=== PATIENT | male | born 1955 | race Caucasian/White ===

== ENCOUNTER 2019-05-26 16:00 | Emergency (ER) | payer OTHER, SELFPAY ==
[2019-05-26 16:00] VITALS: BP 133/77; PULSE 76; RESP 20; TEMP 36.5; O2SAT 95; BMI 44.7
--- NOTE | 2019-05-26 16:34 | DI.US.S_ITS ---
PROCEDURE: US SCROTUM INDICATIONS: RIGHT TESTICULAR PAIN TECHNIQUE: Real-time scanning was performed of the scrotum and testicles, with image documentation. Color and pulse Doppler interrogation was performed of both testicles. COMPARISON: None. FINDINGS: Right: Testicle is normal in size at 4.1 x 2.8 x 2.7 cm, and homogenous in echotexture. Epididymis is normal in overall size and morphology. Small hydrocele. Small varicocele. There is an incidental 7 mm epididymal cyst. Overlying scrotal skin is normal in thickness. Left: Testicle is normal in size at 4.3 x 3.3 x 2.5 cm, and homogeneous in echotexture. Epididymis is normal in overall size and morphology. Small hydrocele. Small varicocele. There is an incidental 3 mm epididymal cyst. Overlying scrotal skin is normal in thickness. Doppler: Color and pulse Doppler demonstrate normal and symmetric arterial flow in both testicles. IMPRESSION: 1. No evidence of testicular mass or testicular torsion. Symmetrical flow to the testicles. 2. Small bilateral hydroceles. 3. Small bilateral varicoceles. Dictated by: Deep Amaya M.D. on 05/26/2019 at 17:24 Approved by: Deep Amaya M.D. on 05/26/2019 at 17:32
--- NOTE | 2019-05-26 17:03 | ED.ABDPAIN ---
HPI - Abdominal Pain <Payton Escobar MD - Last Filed: 05/26/19 19:14> General Chief Complaint: Abdominal Pain Stated Complaint: not feeling well Time Seen by Provider: 05/26/19 16:10 Source: patient Mode of arrival: ambulatory Limitations: no limitations History of Present Illness HPI narrative: Patient comes to the emergency department complaining abdominal pain and increased flatulence and belching over the last several days. Patient states that initially, the pain was just a vague ache, intermittently, but now, the pain is stabbing and causes him to double over. He states it still comes intermittently but there is a dull ache constantly. Pain is located in the patient's right lower back and flank and in the lowest region of his right lower quadrant. He states he also has some mild testicular soreness on the right that he noticed when he was in the shower and washing himself. Patient denies any swelling. No history of hernia. He states that about a month ago, he caught his right testicle in his underwear and pulled it. He states that since then, he does seem to have had a little bit of soreness. Patient denies fevers. No nausea or vomiting. No dysuria. No gross hematuria, the patient does note that he was followed for several years by Urology for painless, microscopic hematuria. No history of kidney stones. Related Data Home Medications Medication Instructions Recorded Confirmed amlodipine [Norvasc] 10 mg PO DAILY 05/26/19 05/26/19 atenolol 150 mg PO DAILY 05/26/19 05/26/19 irbesartan 300 mg PO QPM 05/26/19 05/26/19 levothyroxine [Synthroid] 224 mcg PO QAM 05/26/19 05/26/19 lovastatin 20 mg PO BEDTIME 05/26/19 05/26/19 potassium chloride 10 meq PO BID 05/26/19 05/26/19 triamterene-hydrochlorothiazid 1 tab PO DAILY 05/26/19 05/26/19 warfarin 5 mg PO DAILY 05/26/19 05/26/19 Allergies Allergy/AdvReac Type Severity Reaction Status Date / Time No Known Allergies Allergy Uncoded 02/18/18 12:40 Review of Systems <Payton Escobar MD - Last Filed: 05/26/19 19:14> Constitutional Denies chills, Denies fever(s), Denies lethargy and Denies weakness Eyes Denies change in vision, Denies eye discharge, Denies irritation and Denies loss of vision ENT Ears, Nose, Mouth, and Throat: Denies change in voice, Denies neck pain and Denies sore throat Cardiovascular Denies chest pain, Denies irregular heart rhythm, Denies lightheadedness, Denies palpitations, Denies dyspnea, Denies dyspnea on exertion and Denies orthopnea Respiratory Denies cough, Denies dyspnea, Denies dyspnea on exertion and Denies wheezing Gastrointestinal Gastrointestinal: Reports abdominal pain, Denies change in bowel habits, Denies diarrhea, Denies nausea and Denies vomiting Genitourinary Denies hematuria, Denies flank pain, Denies urinary incontinence and Denies urinary urgency Musculoskeletal Denies neck pain Integumentary/Breasts Denies pruritus, Denies erythema, Denies rash and Denies wounds Neurologic Denies confusion, Denies loss of vision and Denies weakness Psychiatric Denies anxiety, Denies confusion, Denies depression, Denies homicidal ideation and Denies suicidal ideation Endocrine Denies palpitations Hematologic/Lymphatic Denies easy bruising Allergic/Immunologic Denies wheezing PFSH <Payton Escobar MD - Last Filed: 05/26/19 19:14> Medical History Hyperlipidemia (Acute) Hematuria (Acute) HTN (hypertension) (Acute) Surgical History History of thyroidectomy Family History (Updated 10/24/16 @ 00:00 by Conversion Provider) Father Prostate cancer Heart disease Essential hypertension Mother Diabetes mellitus Essential hypertension Social History Smoking Status: Current every day smoker Family History (Updated 10/24/16 @ 00:00 by Conversion Provider) Father Prostate cancer Heart disease Essential hypertension Mother Diabetes mellitus Essential hypertension Social History Smoking Status: Current every day smoker Exam <Payton Escobar MD - Last Filed: 05/26/19 19:14> Initial Vital Signs Initial Vital Signs: Vital Signs Temperature 97.7 F 05/26/19 16:00 Pulse Rate 76 05/26/19 16:00 Respiratory Rate 20 05/26/19 16:00 Blood Pressure 133/77 05/26/19 16:00 Pulse Oximetry 95 05/26/19 16:00 Scrotum: no scrotal swelling Testes: testicular lie normal Other: Mild right testicular tenderness. <Andrew Schultz DO - Last Filed: 05/26/19 20:27> Initial Vital Signs Initial Vital Signs: Vital Signs Temperature 97.7 F 05/26/19 16:00 Pulse Rate 76 05/26/19 16:00 Respiratory Rate 20 05/26/19 16:00 Blood Pressure 133/77 05/26/19 16:00 Pulse Oximetry 95 05/26/19 16:00 Course <Payton Escobar MD - Last Filed: 05/26/19 19:14> Course Narrative: Patient was worked up with labs, UA, scrotal ultrasound, and CT of the abdomen pelvis. He was signed out to Dr. Schultz at change of shift, pending CT of the abdomen and pelvis. Ultrasound was unremarkable. Orders Ordered: ED Orders 05/26/19 16:34 US scrotum Stat 05/26/19 17:40 Complete Blood Count AUTO DIFF Stat Comprehensive Metabolic Panel Stat Urinalysis and Microscopic Stat 05/26/19 18:05 CT abdomen pelvis w con Stat Discontinued Medications Sodium Chloride (Normal Saline 0.9%) 1,000 mls @ 1,000 mls/hr IV BOLUS ONE Stop: 05/26/19 17:33 Last Infusion: 05/26/19 19:28 Dose: 0 mls/hr Admin: 05/26/19 17:45 Dose: 1,000 mls/hr Vital Signs - 8 hr 05/26/19 16:00 05/26/19 17:45 05/26/19 19:53 Temperature 97.7 F Pulse Rate 76 63 80 Respiratory Rate 20 Blood Pressure 133/77 168/108 H Blood Pressure [Left Arm] 153/82 H Pulse Oximetry 95 96 98 <Andrew Schultz DO - Last Filed: 05/26/19 20:27> Orders Ordered: ED Orders 05/26/19 16:34 US scrotum Stat 05/26/19 17:40 Complete Blood Count AUTO DIFF Stat Comprehensive Metabolic Panel Stat Urinalysis and Microscopic Stat 05/26/19 18:05 CT abdomen pelvis w con Stat Discontinued Medications Sodium Chloride (Normal Saline 0.9%) 1,000 mls @ 1,000 mls/hr IV BOLUS ONE Stop: 05/26/19 17:33 Last Infusion: 05/26/19 19:28 Dose: 0 mls/hr Admin: 05/26/19 17:45 Dose: 1,000 mls/hr Vital Signs - 8 hr 05/26/19 16:00 05/26/19 17:45 05/26/19 19:53 Temperature 97.7 F Pulse Rate 76 63 80 Respiratory Rate 20 Blood Pressure 133/77 168/108 H Blood Pressure [Left Arm] 153/82 H Pulse Oximetry 95 96 98 MDM - Abdominal Pain <Payton Escobar MD - Last Filed: 05/26/19 19:14> Lab Data Result diagrams: 05/26/19 17:40 05/26/19 17:40 Lab Results 05/26/19 05/26/19 05/26/19 Range/Units 17:40 17:40 17:40 WBC 12.1 H (4.5-11.0) X10^3/uL RBC 5.73 (4.5-5.9) X10^6/uL Hgb 17.7 H (13.5-17.5) g/dL Hct 53.6 H (41-53) % MCV 93.6 (80-100) fL MCH 30.9 (26-34) PG MCHC 33.0 (30-36) % RDW 15.5 H (11.6-14.8) % Plt Count 145 L (150-400) X10^3/uL Neut % (Auto) 77.2 H (50-75) % Lymph % (Auto) 15.6 L (25-40) % Wirt % (Auto) 5.9 (3-14) % Eos % (Auto) 0.7 L (2-4) % Baso % (Auto) 0.6 (0-2) % Neut # (Auto) 9400 H (9945-7044) /uL Lymph # (Auto) 1900 (7279-0302) /uL Wirt # (Auto) 700 (0-900) /uL Eos # (Auto) 100 (0-450) /uL Baso # (Auto) 100 (0-100) /uL Sodium 141 (137-145) mmol/L Potassium 3.2 L (3.4-5.1) mmol/L Chloride 105 (98-107) mmol/L Carbon Dioxide 25 (22-32) mmol/L BUN 11 (9-20) mg/dL Creatinine 0.80 (0.66-1.25) mg/dL Estimated GFR > 60.0 (>60) mL/min BUN/Creatinine Ratio 13.8 (6-22) Glucose 108 (80-110) mg/dL Calcium 9.3 (8.4-10.2) mg/dL Total Bilirubin 1.3 (0.2-1.3) mg/dL AST 29 (17-59) IU/L ALT 37 (21-72) IU/L Alkaline Phosphatase 94 (38-126) U/L Total Protein 7.6 (6.3-8.2) g/dL Albumin 4.2 (3.5-5.0) g/dL Globulin 3.4 (1.7-4.1) g/dL Albumin/Globulin Ratio 1.2 (1.0-2.8) Urine Color Yellow Urine Appearance Clear Urine pH 7.0 (4.5-8.0) Ur Specific [place] 1.015 (1.000-1.035) Urine Protein Negative (Negative) Urine Glucose (UA) Negative (Negative) g/dL Urine Ketones Negative (NEGATIVE) Urine Occult Blood 3+ H (Negative) Urine Nitrate Negative (Negative) Urine Bilirubin Negative (NEGATIVE) Urine Urobilinogen 1.0 (0.2) E.U./dL Ur Leukocyte Esterase Negative (NEGATIVE) Urine RBC 5-10/hpf H (0-5/HPF) Urine WBC None seen (0-5/HPF) Urine Bacteria Occasional (0-1) (None) Ur Culture Indicated? Cult not indicated <Andrew Schultz, DO - Last Filed: 05/26/19 20:27> Lab Data Lab Results 05/26/19 05/26/19 05/26/19 Range/Units 17:40 17:40 17:40 WBC 12.1 H (4.5-11.0) X10^3/uL RBC 5.73 (4.5-5.9) X10^6/uL Hgb 17.7 H (13.5-17.5) g/dL Hct 53.6 H (41-53) % MCV 93.6 (80-100) fL MCH 30.9 (26-34) PG MCHC 33.0 (30-36) % RDW 15.5 H (11.6-14.8) % Plt Count 145 L (150-400) X10^3/uL Neut % (Auto) 77.2 H (50-75) % Lymph % (Auto) 15.6 L (25-40) % Wirt % (Auto) 5.9 (3-14) % Eos % (Auto) 0.7 L (2-4) % Baso % (Auto) 0.6 (0-2) % Neut # (Auto) 9400 H (9599-5494) /uL Lymph # (Auto) 1900 (8870-1092) /uL Wirt # (Auto) 700 (0-900) /uL Eos # (Auto) 100 (0-450) /uL Baso # (Auto) 100 (0-100) /uL Sodium 141 (137-145) mmol/L Potassium 3.2 L (3.4-5.1) mmol/L Chloride 105 (98-107) mmol/L Carbon Dioxide 25 (22-32) mmol/L BUN 11 (9-20) mg/dL Creatinine 0.80 (0.66-1.25) mg/dL Estimated GFR > 60.0 (>60) mL/min BUN/Creatinine Ratio 13.8 (6-22) Glucose 108 (80-110) mg/dL Calcium 9.3 (8.4-10.2) mg/dL Total Bilirubin 1.3 (0.2-1.3) mg/dL AST 29 (17-59) IU/L ALT 37 (21-72) IU/L Alkaline Phosphatase 94 (38-126) U/L Total Protein 7.6 (6.3-8.2) g/dL Albumin 4.2 (3.5-5.0) g/dL Globulin 3.4 (1.7-4.1) g/dL Albumin/Globulin Ratio 1.2 (1.0-2.8) Urine Color Yellow Urine Appearance Clear Urine pH 7.0 (4.5-8.0) Ur Specific [place] 1.015 (1.000-1.035) Urine Protein Negative (Negative) Urine Glucose (UA) Negative (Negative) g/dL Urine Ketones Negative (NEGATIVE) Urine Occult Blood 3+ H (Negative) Urine Nitrate Negative (Negative) Urine Bilirubin Negative (NEGATIVE) Urine Urobilinogen 1.0 (0.2) E.U./dL Ur Leukocyte Esterase Negative (NEGATIVE) Urine RBC 5-10/hpf H (0-5/HPF) Urine WBC None seen (0-5/HPF) Urine Bacteria Occasional (0-1) (None) Ur Culture Indicated? Cult not indicated Imaging Data CT scan - abdomen: Radiologist's impression: [address] [address] [address] Scan Report Signed Patient: Dominick Koroma WMR#: [id number] : 6Acct:[id number] Age/Sex: 64 / MDate of Service: 05/26/19 Loc: ED Accession Number: [id number] Procedure: CT abdomen pelvis w con Ordering Provider: Payton Escobar MD PROCEDURE: CT ABDOMEN PELVIS W CON INDICATIONS: RLQ abd pain since Friday. TECHNIQUE: After the administration of intravenous contrast, 5 mm thick sections acquired from the diaphragm to the symphysis. 5 mm coronal and sagittal reformats were acquired. For radiation dose reduction, the following was used: automated exposure control, adjustment of mA and/or kV according to patient size. COMPARISON: None. FINDINGS: Image quality: Excellent. ABDOMEN: Lung bases: Lung bases are clear. Heart size is normal. Solid organs: Liver is normal in size and enhancement. Gallbladder is unremarkable. Biliary system is non dilated. Pancreas enhances normally. Spleen is normal in size and enhancement. No adrenal nodules. Kidneys demonstrate normal size and enhancement, without hydronephrosis. Peritoneum and bowel: Bowel loops demonstrate normal wall thickness and caliber. No free fluid or air. Normal appendix. Nodes and vessels: No retroperitoneal or mesenteric adenopathy by size criteria. Aorta and inferior vena cava are normal in size. Mild atherosclerotic calcifications. Miscellaneous: No ventral hernias. PELVIS: Genitourinary: Moderately distended bladder with normal wall thickness. Enlarged prostate. Miscellaneous: No inguinal hernias or adenopathy. Bones: No suspicious bony lesions. No vertebral body compression fractures. IMPRESSION: No evidence of acute appendicitis or other acute abdominal process. 2. Enlarged prostate Dictated by: Deep Amaya M.D. on 05/26/2019 at 19:09 Approved by: Deep Amaya M.D. on 05/26/2019 at 19:15 Testicular ultrasound: Radiologist's impression: Dominick Koroma 64 M [address] [address] Ultrasound Report Signed Patient: Dominick Koroma WMR#: [id number] : 6Acct:[id number] Age/Sex: 64 / MDate of Service: 05/26/19 Loc: ED Accession Number: [id number] Procedure: US scrotum Ordering Provider: Payton Escobar MD PROCEDURE: US SCROTUM INDICATIONS: RIGHT TESTICULAR PAIN TECHNIQUE: Real-time scanning was performed of the scrotum and testicles, with image documentation. Color and pulse Doppler interrogation was performed of both testicles. COMPARISON: None. FINDINGS: Right: Testicle is normal in size at 4.1 x 2.8 x 2.7 cm, and homogenous in echotexture. Epididymis is normal in overall size and morphology. Small hydrocele. Small varicocele. There is an incidental 7 mm epididymal cyst. Overlying scrotal skin is normal in thickness. Left: Testicle is normal in size at 4.3 x 3.3 x 2.5 cm, and homogeneous in echotexture. Epididymis is normal in overall size and morphology. Small hydrocele. Small varicocele. There is an incidental 3 mm epididymal cyst. Overlying scrotal skin is normal in thickness. Doppler: Color and pulse Doppler demonstrate normal and symmetric arterial flow in both testicles. IMPRESSION: 1. No evidence of testicular mass or testicular torsion. Symmetrical flow to the testicles. 2. Small bilateral hydroceles. 3. Small bilateral varicoceles. Dictated by: Deep Amaya M.D. on 05/26/2019 at 17:24 Approved by: Deep Amaya M.D. on 05/26/2019 at 17:32 MDM Narrative Medical decision making narrative: Received turned over from day provider. Reviewed patient's history and physical. Patient's labs reviewed. Scrotal ultrasound reviewed. Abdominal CT scan is unremarkable. Patient does have hematuria and upon further questioning patient states he has had hematuria in the past and has seen Urology for this. Unsure if this is his baseline hematuria or potentially passed a kidney stone. No acute pathology noted on any of his workup here in the ER. No signs of infection. No indication for surgical referral. I did discuss this with the patient and his who is at bedside. Will hold on further workup for now. Patient was given return precautions and follow-up instructions. He expressed understanding and agreement with plan. Discharge Plan Departure Patient Disposition: Home Clinical Impression: Abdominal pain Qualifiers: Abdominal location: right lower quadrant Qualified Code(s): R10.31 - Right lower quadrant pain Hematuria Qualifiers: Hematuria type: unspecified type Qualified Code(s): R31.9 - Hematuria, unspecified Discharge Date/Time: 05/26/19 19:54 Interventions: ED Discharge Assessment Last Done: 05/26/19 19:53 Instructions: DI for Abdominal Pain-Adult Activity Restrictions/Additional Instructions: Recommend you contact your primary provider to discuss the blood in your urine and any potential for further workup of this. If your abdominal pain worsens or you develop any need new symptoms please return to the emergency department. Prescriptions: No Action potassium chloride 10 mEq tablet extended release 10 meq PO BID RF: 0 warfarin 5 mg tablet 5 mg PO DAILY RF: 0 atenolol 50 mg tablet 150 mg PO DAILY RF: 0 irbesartan 300 mg tablet 300 mg PO QPM RF: 0 amlodipine [Norvasc] 10 MG tablet 10 mg PO DAILY RF: 0 triamterene-hydrochlorothiazid 37.5 MG/25 MG tablet 1 tab PO DAILY RF: 0 lovastatin 20 MG tablet 20 mg PO BEDTIME RF: 0 levothyroxine [Synthroid] 112 MCG tablet 224 mcg PO QAM RF: 0 Referrals: Edyta Rubio ARNP [Primary Care Provider] -
--- NOTE | 2019-05-26 17:06 | ED_ITS ---
HPI - Abdominal Pain <Payton Escobar MD - Last Filed: 05/26/19 19:14> General Chief Complaint: Abdominal Pain Stated Complaint: not feeling well Time Seen by Provider: 05/26/19 16:10 Source: patient Mode of arrival: ambulatory Limitations: no limitations History of Present Illness HPI narrative: Patient comes to the emergency department complaining abdominal pain and increased flatulence and belching over the last several days. Patient states that initially, the pain was just a vague ache, intermittently, but now, the pain is stabbing and causes him to double over. He states it still comes intermittently but there is a dull ache constantly. Pain is located in the patient's right lower back and flank and in the lowest region of his right lower quadrant. He states he also has some mild testicular soreness on the right that he noticed when he was in the shower and washing himself. Patient denies any swelling. No history of hernia. He states that about a month ago, he caught his right testicle in his underwear and pulled it. He states that since then, he does seem to have had a little bit of soreness. Patient denies fevers. No nausea or vomiting. No dysuria. No gross hematuria, the patient does note that he was followed for several years by Urology for painless, microscopic hematuria. No history of kidney stones. Related Data Home Medications Medication Instructions Recorded Confirmed amlodipine [Norvasc] 10 mg PO DAILY 05/26/19 05/26/19 atenolol 150 mg PO DAILY 05/26/19 05/26/19 irbesartan 300 mg PO QPM 05/26/19 05/26/19 levothyroxine [Synthroid] 224 mcg PO QAM 05/26/19 05/26/19 lovastatin 20 mg PO BEDTIME 05/26/19 05/26/19 potassium chloride 10 meq PO BID 05/26/19 05/26/19 triamterene-hydrochlorothiazid 1 tab PO DAILY 05/26/19 05/26/19 warfarin 5 mg PO DAILY 05/26/19 05/26/19 Allergies Allergy/AdvReac Type Severity Reaction Status Date / Time No Known Allergies Allergy Uncoded 02/18/18 12:40 Review of Systems <Payton Escobar MD - Last Filed: 05/26/19 19:14> Constitutional Denies chills, Denies fever(s), Denies lethargy and Denies weakness Eyes Denies change in vision, Denies eye discharge, Denies irritation and Denies loss of vision ENT Ears, Nose, Mouth, and Throat: Denies change in voice, Denies neck pain and Den ies sore throat Cardiovascular Denies chest pain, Denies irregular heart rhythm, Denies lightheadedness, Denies palpitations, Denies dyspnea, Denies dyspnea on exertion and Denies orthopnea Respiratory Denies cough, Denies dyspnea, Denies dyspnea on exertion and Denies wheezing Gastrointestinal Gastrointestinal: Reports abdominal pain, Denies change in bowel habits, Denies diarrhea, Denies nausea and Denies vomiting Genitourinary Denies hematuria, Denies flank pain, Denies urinary incontinence and Denies urinary urgency Musculoskeletal Denies neck pain Integumentary/Breasts Denies pruritus, Denies erythema, Denies rash and Denies wounds Neurologic Denies confusion, Denies loss of vision and Denies weakness Psychiatric Denies anxiety, Denies confusion, Denies depression, Denies homicidal ideation and Denies suicidal ideation Endocrine Denies palpitations Hematologic/Lymphatic Denies easy bruising Allergic/Immunologic Denies wheezing PFSH <Payton Escobar MD - Last Filed: 05/26/19 19:14> Medical History Hyperlipidemia (Acute) Hematuria (Acute) HTN (hypertension) (Acute) Surgical History History of thyroidectomy Family History (Updated 10/24/16 @ 00:00 by Conversion Provider) Father Prostate cancer Heart disease Essential hypertension Mother Diabetes mellitus Essential hypertension Social History Smoking Status: Current every day smoker Family History (Updated 10/24/16 @ 00:00 by Conversion Provider) Father Prostate cancer Heart disease Essential hypertension Mother Diabetes mellitus Essential hypertension Social History Smoking Status: Current every day smoker Exam <Payton Escobar MD - Last Filed: 05/26/19 19:14> Initial Vital Signs Initial Vital Signs: Vital Signs Temperature 97.7 F 05/26/19 16:00 Pulse Rate 76 05/26/19 16:00 Respiratory Rate 20 05/26/19 16:00 Blood Pressure 133/77 05/26/19 16:00 Pulse Oximetry 95 05/26/19 16:00 Scrotum: no scrotal swelling Testes: testicular lie normal Other: Mild right testicular tenderness. <Andrew Schultz DO - Last Filed: 05/26/19 20:27> Initial Vital Signs Initial Vital Signs: Vital Signs Temperature 97.7 F 05/26/19 16:00 Pulse Rate 76 05/26/19 16:00 Respiratory Rate 20 05/26/19 16:00 Blood Pressure 133/77 05/26/19 16:00 Pulse Oximetry 95 05/26/19 16:00 Course <Payton Escobar MD - Last Filed: 05/26/19 19:14> Course Narrative: Patient was worked up with labs, UA, scrotal ultrasound, and CT of the abdomen pelvis. He was signed out to Dr. Schultz at change of shift, pending CT of the abdomen and pelvis. Ultrasound was unremarkable. Orders Ordered: ED Orders 05/26/19 16:34 US scrotum Stat 05/26/19 17:40 Complete Blood Count AUTO DIFF Stat Comprehensive Metabolic Panel Stat Urinalysis and Microscopic Stat 05/26/19 18:05 CT abdomen pelvis w con Stat Discontinued Medications Sodium Chloride (Normal Saline 0.9%) 1,000 mls @ 1,000 mls/hr IV BOLUS ONE Stop: 05/26/19 17:33 Last Infusion: 05/26/19 19:28 Dose: 0 mls/hr Admin: 05/26/19 17:45 Dose: 1,000 mls/hr Vital Signs - 8 hr 05/26/19 16:00 05/26/19 17:45 05/26/19 19:53 Temperature 97.7 F Pulse Rate 76 63 80 Respiratory Rate 20 Blood Pressure 133/77 168/108 H Blood Pressure [Left Arm] 153/82 H Pulse Oximetry 95 96 98 <Andrew Schultz DO - Last Filed: 05/26/19 20:27> Orders Ordered: ED Orders 05/26/19 16:34 US scrotum Stat 05/26/19 17:40 Complete Blood Count AUTO DIFF Stat Comprehensive Metabolic Panel Stat Urinalysis and Microscopic Stat 05/26/19 18:05 CT abdomen pelvis w con Stat Discontinued Medications Sodium Chloride (Normal Saline 0.9%) 1,000 mls @ 1,000 mls/hr IV BOLUS ONE Stop: 05/26/19 17:33 Last Infusion: 05/26/19 19:28 Dose: 0 mls/hr Admin: 05/26/19 17:45 Dose: 1,000 mls/hr Vital Signs - 8 hr 05/26/19 16:00 05/26/19 17:45 05/26/19 19:53 Temperature 97.7 F Pulse Rate 76 63 80 Respiratory Rate 20 Blood Pressure 133/77 168/108 H Blood Pressure [Left Arm] 153/82 H Pulse Oximetry 95 96 98 MDM - Abdominal Pain <Payton Escobar MD - Last Filed: 05/26/19 19:14> Lab Data Result diagrams: 05/26/19 17:40 05/26/19 17:40 Lab Results 05/26/19 05/26/19 05/26/19 Range/Units 17:40 17:40 17:40 WBC 12.1 H (4.5-11.0) X10^3/uL RBC 5.73 (4.5-5.9) X10^6/uL Hgb 17.7 H (13.5-17.5) g/dL Hct 53.6 H (41-53) % MCV 93.6 (80-100) fL MCH 30.9 (26-34) PG MCHC 33.0 (30-36) % RDW 15.5 H (11.6-14.8) % Plt Count 145 L (150-400) X10^3/uL Neut % (Auto) 77.2 H (50-75) % Lymph % (Auto) 15.6 L (25-40) % [place] % (Auto) 5.9 (3-14) % Eos % (Auto) 0.7 L (2-4) % Baso % (Auto) 0.6 (0-2) % Neut # (Auto) 9400 H (2023-3106) /uL Lymph # (Auto) 1900 (6800-0527) /uL [place] # (Auto) 700 (0-900) /uL Eos # (Auto) 100 (0-450) /uL Baso # (Auto) 100 (0-100) /uL Sodium 141 (137-145) mmol/L Potassium 3.2 L (3.4-5.1) mmol/L Chloride 105 (98-107) mmol/L Carbon Dioxide 25 (22-32) mmol/L BUN 11 (9-20) mg/dL Creatinine 0.80 (0.66-1.25) mg/dL Estimated GFR > 60.0 (>60) mL/min BUN/Creatinine Ratio 13.8 (6-22) Glucose 108 (80-110) mg/dL Calcium 9.3 (8.4-10.2) mg/dL Total Bilirubin 1.3 (0.2-1.3) mg/dL AST 29 (17-59) IU/L ALT 37 (21-72) IU/L Alkaline Phosphatase 94 (38-126) U/L Total Protein 7.6 (6.3-8.2) g/dL Albumin 4.2 (3.5-5.0) g/dL Globulin 3.4 (1.7-4.1) g/dL Albumin/Globulin Ratio 1.2 (1.0-2.8) Urine Color Yellow Urine Appearance Clear Urine pH 7.0 (4.5-8.0) Ur Specific [place] 1.015 (1.000-1.035) Urine Protein Negative (Negative) Urine Glucose (UA) Negative (Negative) g/dL Urine Ketones Negative (NEGATIVE) Urine Occult Blood 3+ H (Negative) Urine Nitrate Negative (Negative) Urine Bilirubin Negative (NEGATIVE) Urine Urobilinogen 1.0 (0.2) E.U./dL Ur Leukocyte Esterase Negative (NEGATIVE) Urine RBC 5-10/hpf H (0-5/HPF) Urine WBC None seen (0-5/HPF) Urine Bacteria Occasional (0-1) (None) Ur Culture Indicated? Cult not indicated <Andrew Schultz, DO - Last Filed: 05/26/19 20:27> Lab Data Lab Results 05/26/19 05/26/19 05/26/19 Range/Units 17:40 17:40 17:40 WBC 12.1 H (4.5-11.0) X10^3/uL RBC 5.73 (4.5-5.9) X10^6/uL Hgb 17.7 H (13.5-17.5) g/dL Hct 53.6 H (41-53) % MCV 93.6 (80-100) fL MCH 30.9 (26-34) PG MCHC 33.0 (30-36) % RDW 15.5 H (11.6-14.8) % Plt Count 145 L (150-400) X10^3/uL Neut % (Auto) 77.2 H (50-75) % Lymph % (Auto) 15.6 L (25-40) % [place] % (Auto) 5.9 (3-14) % Eos % (Auto) 0.7 L (2-4) % Baso % (Auto) 0.6 (0-2) % Neut # (Auto) 9400 H (7924-4742) /uL Lymph # (Auto) 1900 (2755-7582) /uL [place] # (Auto) 700 (0-900) /uL Eos # (Auto) 100 (0-450) /uL Baso # (Auto) 100 (0-100) /uL Sodium 141 (137-145) mmol/L Potassium 3.2 L (3.4-5.1) mmol/L Chloride 105 (98-107) mmol/L Carbon Dioxide 25 (22-32) mmol/L BUN 11 (9-20) mg/dL Creatinine 0.80 (0.66-1.25) mg/dL Estimated GFR > 60.0 (>60) mL/min BUN/Creatinine Ratio 13.8 (6-22) Glucose 108 (80-110) mg/dL Calcium 9.3 (8.4-10.2) mg/dL Total Bilirubin 1.3 (0.2-1.3) mg/dL AST 29 (17-59) IU/L ALT 37 (21-72) IU/L Alkaline Phosphatase 94 (38-126) U/L Total Protein 7.6 (6.3-8.2) g/dL Albumin 4.2 (3.5-5.0) g/dL Globulin 3.4 (1.7-4.1) g/dL Albumin/Globulin Ratio 1.2 (1.0-2.8) Urine Color Yellow Urine Appearance Clear Urine pH 7.0 (4.5-8.0) Ur Specific [place] 1.015 (1.000-1.035) Urine Protein Negative (Negative) Urine Glucose (UA) Negative (Negative) g/dL Urine Ketones Negative (NEGATIVE) Urine Occult Blood 3+ H (Negative) Urine Nitrate Negative (Negative) Urine Bilirubin Negative (NEGATIVE) Urine Urobilinogen 1.0 (0.2) E.U./dL Ur Leukocyte Esterase Negative (NEGATIVE) Urine RBC 5-10/hpf H (0-5/HPF) Urine WBC None seen (0-5/HPF) Urine Bacteria Occasional (0-1) (None) Ur Culture Indicated? Cult not indicated Imaging Data CT scan - abdomen: Radiologist's impression: [address] [address] [address] Scan Report Signed Patient: Dominick Koroma WMR#: [id number] : 6Acct:[id number] Age/Sex: 64 / MDate of Service: 05/26/19 Loc: ED Accession Number: [id number] Procedure: CT abdomen pelvis w con Ordering Provider: Payton Escobar MD PROCEDURE: CT ABDOMEN PELVIS W CON INDICATIONS: RLQ abd pain since Friday. TECHNIQUE: After the administration of intravenous contrast, 5 mm thick sections acquired from the diaphragm to the symphysis. 5 mm coronal and sagittal reformats were acquired. For radiation dose reduction, the following was used: automated exposure control, adjustment of mA and/or kV according to patient size. COMPARISON: None. FINDINGS: Image quality: Excellent. ABDOMEN: Lung bases: Lung bases are clear. Heart size is normal. Solid organs: Liver is normal in size and enhancement. Gallbladder is unremarkable. Biliary system is non dilated. Pancreas enhances normally. Spleen is normal in size and enhancement. No adrenal nodules. Kidneys demonstrate normal size and enhan cement, without hydronephrosis. Peritoneum and bowel: Bowel loops demonstrate normal wall thickness and caliber. No free fluid or air. Normal appendix. Nodes and vessels: No retroperitoneal or mesenteric adenopathy by size criteria. Aorta and inferior vena cava are normal in size. Mild atherosclerotic calcifications. Miscellaneous: No ventral hernias. PELVIS: Genitourinary: Moderately distended bladder with normal wall thickness. Enlarged prostate. Miscellaneous: No inguinal hernias or adenopathy. Bones: No suspicious bony lesions. No vertebral body compression fractures. IMPRESSION: No evidence of acute appendicitis or other acute abdominal process. 2. Enlarged prostate Dictated by: Deep Amaya M.D. on 05/26/2019 at 19:09 Approved by: Deep Amaya M.D. on 05/26/2019 at 19:15 Testicular ultrasound: Radiologist's impression: Dominick Koroma 64 M [address] [address] Ultrasound Report Signed Patient: Dominick Koroma WMR#: [id number] : 6Acct:[id number] Age/Sex: 64 / MDate of Service: 05/26/19 Loc: ED Accession Number: [id number] Procedure: US scrotum Ordering Provider: Payton Escobar MD PROCEDURE: US SCROTUM INDICATIONS: RIGHT TESTICULAR PAIN TECHNIQUE: Real-time scanning was performed of the scrotum and testicles, with image documentation. Color and pulse Doppler interrogation was performed of both testicles. COMPARISON: None. FINDINGS: Right: Testicle is normal in size at 4.1 x 2.8 x 2.7 cm, and homogenous in echotexture. Epididymis is normal in overall size and morphology. Small hydrocele. Small varicocele. There is an incidental 7 mm epididymal cyst. Overlying scrotal skin is normal in thickness. Left: Testicle is normal in size at 4.3 x 3.3 x 2.5 cm, and homogeneous in echotexture. Epididymis is normal in overall size and morphology. Small hydrocele. Small varicocele. There is an incidental 3 mm epididymal cyst. Overlying scrotal skin is normal in thickness. Doppler: Color and pulse Doppler demonstrate normal and symmetric arterial flow in both testicles. IMPRESSION: 1. No evidence of testicular mass or testicular torsion. Symmetrical flow to the testicles. 2. Small bilateral hydroceles. 3. Small bilateral varicoceles. Dictated by: Deep Amaya M.D. on 05/26/2019 at 17:24 Approved by: Deep Amaya M.D. on 05/26/2019 at 17:32 MDM Narrative Medical decision making narrative: Received turned over from day provider. Reviewed patient's history and physical. Patient's labs reviewed. Scrotal ultrasound reviewed. Abdominal CT scan is unremarkable. Patient does have hematuria and upon further questioning patient states he has had hematuria in the past and has seen Urology for this. Unsure if this is his baseline hematuria or potentially passed a kidney stone. No acute pathology noted on any of his workup here in the ER. No signs of infection. No indication for surgical referral. I did discuss this with the patient and his who is at bedside. Will hold on further workup for now. Patient was given return precautions and follow-up instructions. He expressed understanding and agreement with plan. Discharge Plan Departure Patient Disposition: Home Clinical Impression: Abdominal pain Qualifiers: Abdominal location: right lower quadrant Qualified Code(s): R10.31 - Right lower quadrant pain Hematuria Qualifiers: Hematuria type: unspecified type Qualified Code(s): R31.9 - Hematuria, unspecified Discharge Date/Time: 05/26/19 19:54 Interventions: ED Discharge Assessment Last Done: 05/26/19 19:53 Instructions: DI for Abdominal Pain-Adult Activity Restrictions/Additional Instructions: Recommend you contact your primary provider to discuss the blood in your urine and any potential for further workup of this. If your abdominal pain worsens or you develop any need new symptoms please return to the emergency department. Prescriptions: No Action potassium chloride 10 mEq tablet extended release 10 meq PO BID RF: 0 warfarin 5 mg tablet 5 mg PO DAILY RF: 0 atenolol 50 mg tablet 150 mg PO DAILY RF: 0 irbesartan 300 mg tablet 300 mg PO QPM RF: 0 amlodipine [Norvasc] 10 MG tablet 10 mg PO DAILY RF: 0 triamterene-hydrochlorothiazid 37.5 MG/25 MG tablet 1 tab PO DAILY RF: 0 lovastatin 20 MG tablet 20 mg PO BEDTIME RF: 0 levothyroxine [Synthroid] 112 MCG tablet 224 mcg PO QAM RF: 0 Referrals: Edyta Rubio ARNP [Primary Care Provider] -
[2019-05-26 17:45] VITALS: BP 153/82; PULSE 63; O2SAT 96
[2019-05-26] MEDS: SODIUM CHLORIDE 0.9% 1,000 ML 1000 ML IV (17:45)
[2019-05-26 17:47] LABS: WBC Urine None Seen (0-5/HPF)
[2019-05-26 17:49] LABS: Add Manual Diff / Slide Review NO; Basophils Absolute Auto 100 /uL (0-100); Basophils Percent Auto 0.6 % (0-2); Eosinophils Absolute Auto 100 /uL (0-450); Eosinophils Percent Auto 0.7 % (2-4); Hematocrit 53.6 % (41-53); Hemoglobin 17.7 g/dL (13.5-17.5); Lymphocytes Absolute Auto 1900 /uL (1100-4500); Lymphocytes Percent Auto 15.6 % (25-40); Mean Corpuscular Hemoglobin 30.9 PG (26-34); Mean Corpuscular Volume 93.6 fL (80-100); Monocytes Absolute Auto 700 /uL (0-900); Monocytes Percent Auto 5.9 % (3-14); Neutrophils Absolute Auto 9400 /uL (1500-7000); Neutrophils Percent Auto 77.2 % (50-75); Platelet Count 145 X10^3/uL (150-400); Red Blood Cell Count 5.73 X10^6/uL (4.5-5.9); Red Cell Distribution Width 15.5 % (11.6-14.8); White Blood Cell Count 12.1 X10^3/uL (4.5-11.0)
[2019-05-26 17:50] LABS: Appearance Urine UA CLEAR; Bilirubin Urine UA NEGATIVE (NEGATIVE); Color Urine UA YELLOW; Glucose Urine UA NEGATIVE (Negative); Ketones Urine UA NEGATIVE (NEGATIVE); Leukocyte Esterase Urine UA NEGATIVE (NEGATIVE); Nitrite Urine UA NEGATIVE (Negative); Occult Blood Urine UA 3+ (Negative); Protein Urine UA NEGATIVE (Negative); Specific Gravity Urine UA 1.015 (1.000-1.035)
[2019-05-26 18:01] LABS: Alanine Aminotransferase 37 IU/L (21-72); Albumin 4.2 g/dL (3.5-5.0); Albumin Globulin Ratio 1.2 (1.0-2.8); Alkaline Phosphatase 94 U/L (38-126); Aspartate Aminotransferase 29 IU/L (17-59); BUN Creatinine Ratio 13.8 (6-22); Bilirubin Total 1.3 mg/dL (0.2-1.3); Blood Urea Nitrogen 11 mg/dL (9-20); Calcium 9.3 mg/dL (8.4-10.2); Carbon Dioxide 25 mmol/L (22-32); Chloride 105 mmol/L (98-107); Estimated Glomerular Filt Rate > 60.0 mL/min (>60); Globulin 3.4 g/dL (1.7-4.1); Glucose 108 mg/dL (80-110); HEMOLYSIS < 15 (0-50); Potassium 3.2 mmol/L (3.4-5.1); Sodium 141 mmol/L (137-145); Total Protein 7.6 g/dL (6.3-8.2)
--- NOTE | 2019-05-26 18:05 | DI.CT.S_ITS ---
PROCEDURE: CT ABDOMEN PELVIS W CON INDICATIONS: RLQ abd pain since Friday. TECHNIQUE: After the administration of intravenous contrast, 5 mm thick sections acquired from the diaphragm to the symphysis. 5 mm coronal and sagittal reformats were acquired. For radiation dose reduction, the following was used: automated exposure control, adjustment of mA and/or kV according to patient size. COMPARISON: None. FINDINGS: Image quality: Excellent. ABDOMEN: Lung bases: Lung bases are clear. Heart size is normal. Solid organs: Liver is normal in size and enhancement. Gallbladder is unremarkable. Biliary system is non dilated. Pancreas enhances normally. Spleen is normal in size and enhancement. No adrenal nodules. Kidneys demonstrate normal size and enhancement, without hydronephrosis. Peritoneum and bowel: Bowel loops demonstrate normal wall thickness and caliber. No free fluid or air. Normal appendix. Nodes and vessels: No retroperitoneal or mesenteric adenopathy by size criteria. Aorta and inferior vena cava are normal in size. Mild atherosclerotic calcifications. Miscellaneous: No ventral hernias. PELVIS: Genitourinary: Moderately distended bladder with normal wall thickness. Enlarged prostate. Miscellaneous: No inguinal hernias or adenopathy. Bones: No suspicious bony lesions. No vertebral body compression fractures. IMPRESSION: No evidence of acute appendicitis or other acute abdominal process. 2. Enlarged prostate Dictated by: Deep Amaya M.D. on 05/26/2019 at 19:09 Approved by: Deep Amaya M.D. on 05/26/2019 at 19:15
[2019-05-26 18:06] LABS: Bacteria Urine Occasional (0-1); Culture Indicated Urine Cult Not Indicated; RBC Urine 5-10/HPF (0-5/HPF)
[2019-05-26 19:53] VITALS: BP 168/108; PULSE 80; O2SAT 98
== END 2019-05-26 19:54 | disposition home or self-care (01) ==
PROVIDERS: Emergency Medicine; Emergency Provider Emergency Medicine; PCP Nurse Practitioner
DX: R10.31 Right lower quadrant pain (principal); R31.9 Hematuria, unspecified
CPT/HCPCS: 36591; 74177; 76870; 80053; 81001; 85025; 96360; 96361; 99283; 99284; Q9967

== ENCOUNTER 2024-01-27 22:41 | Emergency (ER) | payer MEDICARE, SELFPAY ==
[2024-01-27 22:48] VITALS: BP 187/91; PULSE 83; RESP 18; TEMP 36.7; O2SAT 98; BMI 44.9
[2024-01-27] MEDS: OXYMETAZOLINE NASAL SPRAY 30 ML 2 SPRAYS NASAL (23:02)
--- NOTE | 2024-01-27 23:16 | ED_ITS ---
HPI - General Adult General Chief complaint: Nasal Problem Stated complaint: nose bleed Time Seen by Provider: 01/27/24 22:50 Source: patient Mode of arrival: Ambulatory History of Present Illness HPI narrative: 69-year-old male. He is on anticoagulation. Is here for evaluation of a nosebleed. Was seen by EMT is on [place]. Attempted Afrin then an injection in his nose without improvement of symptoms. Arrives by private vehicle. No problems breathing. No trauma. Related Data Home Medications Medication Instructions Recorded Confirmed amlodipine 10 mg tablet (Norvasc) 10 mg PO DAILY 05/26/19 05/26/19 atenolol 50 mg tablet 150 mg PO DAILY 05/26/19 05/26/19 irbesartan 300 mg tablet 300 mg PO QPM 05/26/19 05/26/19 levothyroxine 112 mcg tablet 224 mcg PO QAM 05/26/19 05/26/19 (Synthroid) lovastatin 20 mg tablet 20 mg PO BEDTIME 05/26/19 05/26/19 potassium chloride 10 mEq 10 meq PO BID 05/26/19 05/26/19 tablet,extended release triamterene 37.5 1 tab PO DAILY 05/26/19 05/26/19 mg-hydrochlorothiazide 25 mg tablet warfarin 5 mg tablet 5 mg PO DAILY 05/26/19 05/26/19 Allergies Allergy/AdvReac Type Severity Reaction Status Date / Time No Known Allergies Allergy Uncoded 02/18/18 12:40 Review of Systems ENT Ears, Nose, Mouth, and Throat: Reports system reviewed and no additional complaints, except as documented Integumentary/Breasts Skin/Breast: Reports system reviewed and no additional complaints, except as documented Neurologic Neurologic: Reports system reviewed and no additional complaints, except as d ocumented Patient History Medical History Hyperlipidemia Hematuria HTN (hypertension) Surgical History History of thyroidectomy Family History (Updated 10/24/16 @ 00:00 by Conversion Provider) Father Prostate cancer Heart disease Essential hypertension Mother Diabetes mellitus Essential hypertension Social History Smoking Status: Current every day smoker Smoking Status: Current every day smoker tobacco type: cigarettes alcohol intake frequency: a few times a week Substance Use Type: does not use Exam Initial Vital Signs Initial Vital Signs: Vital Signs Temperature 98.1 F 01/27/24 22:48 Pulse Rate 83 01/27/24 22:48 Respiratory Rate 18 01/27/24 22:48 Blood Pressure 187/91 H 01/27/24 22:48 Pulse Oximetry 98 01/27/24 22:48 Oxygen Delivery Method Room Air 01/27/24 22:48 [facility] Head: normal to inspection and normocephalic Nose: epistaxis (Right nares) Skin General: no rashes or lesions noted Neuro General: patient alert, patient awake, patient oriented x3 and moves all extremities Extrem General: normal to inspection and capillary refill normal Procedures Epistaxis Control Nostril: right Nose Prepped With: oxymetazoline Direct Inspection: yes and unable to visualize Clots Removed by: blowing nose Cautery Used: none Device Inserted: nasal tampon Device Size: 55 Patient Tolerated Procedure: well and no complications Course Orders Ordered: Discontinued Medications Oxymetazoline HCl (Oxymetazoline Nasal [place] 30 Ml) 2 sprays NASAL NOW ONE Stop: 01/27/24 22:58 Last Admin: 01/27/24 23:02 Dose: 2 sprays Documented By: ENZO Tranexamic Acid (Tranexamic Acid 1,000 Mg Vial) 1,000 mg TOP NOW ONE Stop: 01/27/24 23:48 Last Admin: 01/27/24 23:58 Dose: 1,000 mg Documented By: ENZO Vital Signs Vital signs: Vital Signs - 8 hr 01/27/24 22:48 01/28/24 01:27 Temperature 98.1 F Pulse Rate 83 76 Respiratory Rate 18 18 Blood Pressure 187/91 H 147/78 H Pulse Oximetry 98 97 Oxygen Delivery Method Room Air Room Air Medical Decision Making MDM Narrative Medical decision making narrative: Initially attempted conservative measures to include heparin, direct pressure the nasal clamp however patient still had bleeding. Appears to be an anterior source but I can not specifically identify the spot that would be amenable to cauterization. A TXA soaked 5.5 rhino rocket was placed in the right nares. No oozing afterwards. Recommend that the patient continue to take his anticoagulation. Recommend that he follow-up with ENT for removal of the packing. He was given return precautions. He expressed understanding and agreement. Discharge Plan Departure Patient Disposition: Home Clinical Impression: Epistaxis Instructions: DI for Nosebleed Activity Restrictions/Additional Instructions: Continue to take all of your medications as directed. I do recommend that you contact the Ear Nose and Throat providers with the number provided below for a follow-up. Return to the emergency department for new or worsening symptoms. Prescriptions: No Action potassium chloride 10 mEq tablet extended release 10 meq PO BID warfarin 5 mg tablet 5 mg PO DAILY atenolol 50 mg tablet 150 mg PO DAILY irbesartan 300 mg tablet 300 mg PO QPM amlodipine [Norvasc] 10 MG tablet 10 mg PO DAILY triamterene-hydrochlorothiazid 37.5 MG/25 MG tablet 1 tab PO DAILY lovastatin 20 MG tablet 20 mg PO BEDTIME levothyroxine [Synthroid] 112 MCG tablet 224 mcg PO QAM Referrals: Edyta Rubio ARNP [Primary Care Provider] - Jarvis Burton MD [Physician] - Stand Alone Forms: Patient Portal/API
[2024-01-27] MEDS: TRANEXAMIC ACID 1,000 MG VIAL 1000 MG TOP (23:58)
[2024-01-28 01:27] VITALS: BP 147/78; PULSE 76; RESP 18; O2SAT 97
== END 2024-01-28 01:40 | disposition home or self-care (01) ==
PROVIDERS: Emergency Provider Emergency Medicine; PCP Nurse Practitioner
DX: R04.0 Epistaxis (principal); Z79.01 Long term (current) use of anticoagulants
CPT/HCPCS: 30901; 99282; 99283

== ENCOUNTER → 2025-05-24 13:27 | Outpatient (CLI) | payer MEDICARE, OTHER, SELFPAY ==
--- NOTE | 2025-05-24 13:32 | DI.CT.S_ITS ---
PROCEDURE: CT LUNG LOW DOSE SCREENING INDICATIONS: SMOKER TECHNIQUE: Noncontrast 2.0-2.5 mm thick sections acquired from the pulmonary apices to the posterior costophrenic angles. 7 mm thick axial MIP, and 5 mm coronal and sagittal reformats were then acquired. For radiation dose reduction, the following was used: automated exposure control, adjustment of mA and/or kV according to patient size. COMPARISON: [facility], CT, CT ABDOMEN PELVIS W CON, 05/26/2019, 18:11. FINDINGS: Image quality: Diagnostic. Lower Neck: No enlarged lymph nodes. Thyroid: No thyroid nodules which require sonographic follow up, per consensus guidelines. Axillae: No enlarged lymph nodes. Chest Wall: Unremarkable. Bones: Age-appropriate bony degenerative changes are seen. Mac row accentuated Lungs and Pleura: No pneumothorax or pleural effusions. No consolidation or suspicious nodules. Heart: Heart size is normal. No pericardial effusion. Moderate to prominent coronary artery calcification can be seen. Thoracic Vessels: The aorta and pulmonary arteries demonstrate normal size. Mediastinum and [place]: No enlarged lymph nodes. Esophagus: No wall thickening. No hiatal hernia. Upper Abdomen: Visualized upper abdomen solid organs and bowel loops appear normal. IMPRESSION: No suspicious pulmonary nodules. LUNG-RADS 1; continued annual screening, if eligible. Clinically Significant Non-pulmonary Findings: Moderate to prominent coronary artery calcification Dictated by: Mehdi Nation M.D. on 05/24/2025 at 15:36 Approved by: Mehdi Nation M.D. on 05/24/2025 at 15:37
== END ==
PROVIDERS: PCP Nurse Practitioner; Referring Provider Physician Assistant; Visit Provider Physician Assistant
DX: Z12.2 Encounter for screening for malignant neoplasm of respiratory organs (principal); F17.210 Nicotine dependence, cigarettes, uncomplicated; I25.10 Atherosclerotic heart disease of native coronary artery without angina pectoris
CPT/HCPCS: 71271